=== PATIENT | female | born 1960 | race Caucasian/White ===

== ENCOUNTER → 2016-12-02 | Outpatient (CLI) | payer BC ==
--- NOTE | 2016-12-03 09:06 | XR ---
EXAMINATION TYPE: XR thoracic spine 2V DATE OF EXAM: 12/02/2016 1:28 PM COMPARISON: NONE HISTORY: Pain Alignment is anatomic. There is no compression deformities. There is hypertrophic change and degener ative disc disease primarily involving the mid and lower thoracic spine. Surgical change in the abdom en noted. IMPRESSION: 1. Multilevel mild to moderate degenerative disc disease with most marked changes involving the lower thoracic spine.
== END | disposition home or self-care (01) ==
LOC: RADXRYALE 11:58
PROVIDERS: ATTEND Physician Assistant Medical
DX: M51.34 Other intervertebral disc degeneration, thoracic region (principal)
CPT/HCPCS: 72070

== ENCOUNTER → 2016-12-28 | Outpatient (CLI) | payer BC ==
[~2016-12-28] MED LIST: COSYNTROPIN 0.25 MG VIAL IVP NR; SODIUM CHLORIDE 0.9% 250 ML in EMPTY BAG 1 BAG IV PRN; SODIUM CHLORIDE 0.9% 500 ML in EMPTY BAG 1 BAG IV PRN
[2016-12-28 11:13] VITALS: BP 115/67; PULSE 82; RESP 16; TEMP 97.9
== END | disposition home or self-care (01) ==
LOC: PROCWHC3 10:50
PROVIDERS: ATTEND Nurse Practitioner Family
DX: R53.83 Other fatigue (principal); I95.9 Hypotension, unspecified; E89.6 Postprocedural adrenocortical (-medullary) hypofunction
CPT/HCPCS: 82533; 82024; 96374; J0834

== ENCOUNTER → 2017-07-02 | Outpatient (CLI) | payer BC ==
--- NOTE | 2017-07-05 11:44 | MM ---
Reason for exam: screening (asymptomatic). Last mammogram was performed 1 year and 1 month ago. History: Patient is postmenopausal and has history of other cancer at age 47. Benign stereotactic core biopsy of the left breast, May 26, 2002. Core biopsy of the left breast. Taking estrogen for 8 years beginning at age 42. Taking progesterone for 8 years beginning at age 42. Physical Findings: A clinical breast exam by your physician is recommended on an annual basis and results should be correlated with mammographic findings. MG 3D Screening Mammo W/Cad Bilateral CC and MLO view(s) were taken. Prior study comparison: June 05, 2016, bilateral MG 3d diag mammo w/cad [facility]. December 23, 2015, bilateral MG 3d screening mammo w/cad. The breast tissue is heterogeneously dense. This may lower the sensitivity of mammography. No significant changes when compared with prior studies. ASSESSMENT: Benign, BI-RAD 2 RECOMMENDATION: Routine screening mammogram of both breasts in 1 year.
== END | disposition home or self-care (01) ==
LOC: RADMAMWWP 13:35
PROVIDERS: ATTEND Obstetrics & Gynecology
DX: Z12.31 Encounter for screening mammogram for malignant neoplasm of breast (principal)
CPT/HCPCS: 77063; G0202

== ENCOUNTER → 2018-06-13 | Outpatient (CLI) | payer BC ==
[2018-06-13 11:17] LABS: Basophils % (A) 1 %; Eosinophils # (A) 0.1 k/uL (0-0.7); Eosinophils % (A) 2 %; HCT 37.1 % (34.0-46.0); HGB 11.8 gm/dL (11.4-16.0); Hypochromasia Slight; Lymphocytes # (A) 1.2 k/uL (1.0-4.8); Lymphocytes % (A) 25 %; MCH 31.9 pg (25.0-35.0); MCHC 31.8 g/dL (31.0-37.0); MCV 100.2 fL (80.0-100.0); Mean Platelet Volume 6.5; Monocytes # (A) 0.3 k/uL (0-1.0); Monocytes % (A) 6 %; Neutrophils # (A) 3.2 k/uL (1.3-7.7); Neutrophils % (A) 65 %; Platelet Count 327 k/uL (150-450); RDW 13.1 % (11.5-15.5); WBC 4.8 k/uL (3.8-10.6)
[2018-06-13 11:37] LABS: Potassium 5.2 mmol/L (3.5-5.1)
== END | disposition home or self-care (01) ==
LOC: LABPAT 10:21
PROVIDERS: ATTEND Obstetrics & Gynecology
DX: Z01.812 Encounter for preprocedural laboratory examination (principal); N95.0 Postmenopausal bleeding
CPT/HCPCS: 36415; 80051; 82565; 82947; 84520; 85025; 87086

== ENCOUNTER 2018-06-20 05:35 | Observation (INO) | payer BC ==
[2018-06-20] MEDS ORDERED: fentaNYL (PF) 50 MCG/ML 2 ML AMP IV PRN (05:53)
[2018-06-20] MEDS ORDERED: LIDOCAINE 1% 20 ML VIAL (10MG/ML) FOR IV START INTRADERMA PRN (05:53)
[2018-06-20] MEDS ORDERED: ONDANSETRON 4 MG/2 ML VIAL IVP ONE (05:53)
[2018-06-20] MEDS: LACTATED RINGERS 1,000 ML IV SCH ×3 (06:35→20:31)
[2018-06-20] MEDS ORDERED: DEXAMETHASONE SOD PHOS (MDV) 100 MG/10 ML VIAL IV ONE (06:36)
[2018-06-20 06:44] LABS: Glucose,Whole Blood 169 mg/dL (75-99)
[2018-06-20] MEDS ORDERED: fentaNYL (PF) 50 MCG/ML 2 ML AMP ONE (07:41)
[2018-06-20] MEDS ORDERED: PROPOFOL 10 MG/ML 20 ML VIAL IV ONE (07:41)
[2018-06-20] MEDS ORDERED: PHENYLEPHRINE-0.9% NACL SYG 1 MG/10 ML SYRINGE ONE (07:41)
[2018-06-20] MEDS ORDERED: ePHEDrine SULFATE/0.9% NACL/PF 50 MG/5 ML SYRINGE IV ONE (07:41)
[2018-06-20] MEDS ORDERED: MIDAZOLAM 2 MG/2 ML VIAL ONE (07:41)
[2018-06-20] MEDS: ceFAZolin IN SWFI 2 GM/20 ML SYRINGE IVP ONE ×2 (07:41→07:50)
[2018-06-20] MEDS ORDERED: LIDOCAINE 1% INJ 10MG/ML (20 ML MDV) ONE (07:41)
[2018-06-20] MEDS ORDERED: VASOPRESSIN 20 UNIT/ML 1 ML VIAL IV ONE (08:13)
[2018-06-20] MEDS ORDERED: BACITRACIN 500 UNIT/GM OINT 28.4 GM TUBE TOPICAL ONE (08:13)
[2018-06-20] MEDS ORDERED: LACTATED RINGERS 1,000 ML IV ONE (08:23)
--- NOTE | 2018-06-20 08:51 | P.OP ---
Date of Procedure: 06/20/18 Preoperative Diagnosis: Postmenopausal bleeding Postoperative Diagnosis: Same Procedure(s) Performed: Total vaginal hysterectomy Anesthesia: GETA, spinal Surgeon: Nay Serrano Reiki Practitioner #1: Oskar Singh Estimated Blood Loss (ml): 70 IV fluids (ml): 1,200 Urine output (ml): 200 Pathology: other (Uterus) Condition: stable Disposition: PACU Indications for Procedure: Postmenopausal bleeding with benign endometrial biopsy. Operative Findings: Normal-appearing uterus. Bilateral ovaries not visualized. Second-degree cystocele. Description of Procedure: After the patient was met with her in the preoperative holding area and options for anesthesia were discussed, she was taken to the operating room where spinal anesthetic was administered without incident. She was in positioned, prepped and draped in the dorsal high lithotomy position. Bladder was drained for approximately 150 mL of clear urine. Weighted speculum was placed in the vagina and the cervix was grasped with a single-tooth tenaculum. There was good uterine descensus noted. The vaginal mucosa was circumferentially infused with dilute vasopressin solution. Scalpel was utilized to make a circumferential incision about the cervix. The anterior posterior vaginal mucosa were bluntly dissected away from the underlying cervical tissue. The posterior peritoneum was then placed on countertraction and entered sharply with Metzenbaum scissors. The short weighted speculum was replaced with a long weighted speculum. The vaginal mucosa was further advanced anteriorly. Nakul clamps were utilized to clamp cut and the suture ligated the uterosacral ligaments bilaterally. 2-0 Vicryl suture was utilized less otherwise indicated. Bladder was further advanced under good visualization anteriorly. The broad ligaments were clamped cut and suture ligated bilaterally. The uterine vasculature was clamped cut and suture ligated bilaterally. The bladder was further advanced. The the posterior fundus of the uterus was then delivered from the vagina and a window was made in the anterior peritoneum. The cornual pedicles were both clamped and the specimen was removed. Both uterine pedicles were doubly suture ligated and inspected for hemostasis. Ovaries were neither visualized nor the able to be palpated on vaginally. The long weighted speculum was removed and the short weighted speculum was replaced. The peritoneum was closed in a pursestring fashion. The vaginal cuff was noted to be quite vascular and Bovie electrocautery was utilized in some areas for hemostasis. The uterosacral ligaments were then reapproximated in the midline incorporating the lateral vaginal mucosa to suspend the vagina. The rest of the vaginal cuff was then closed in an interrupted fashion with 0 Vicryl suture. Hemostasis was noted. The cuff was observed. The vagina was then packed with bacitracin-soaked Kerlix. Cheema catheter was placed in the vagina and an additional 50 mL of clear urine was obtained. All counts were reported to me as correct by the operating room staff and the patient was awoken from anesthetic without incident. She is transported recovery area in stable condition.
[2018-06-20] MEDS ORDERED: MORPHINE SULFATE 4 MG/ML SYRINGE IVP PRN (09:11)
[2018-06-20] MEDS ORDERED: NALOXONE 0.4 MG/ML 1 ML VIAL IV PRN (09:11)
[2018-06-20] MEDS ORDERED: ONDANSETRON 4 MG/2 ML VIAL IVP PRN ×2 (09:11→10:03)
[2018-06-20] MEDS ORDERED: Acetaminophen-Codeine 300-30mg TAB PO PRN ×2 (10:03)
[2018-06-20] MEDS ORDERED: SIMETHICONE 80 MG CHEWABLE PO PRN (10:03)
[2018-06-20] MEDS ORDERED: diphenhydrAMINE 50 MG/ML 1 ML VIAL IVP PRN (10:03)
[2018-06-20] MEDS ORDERED: KETOROLAC 30 MG/ML 1 ML VIAL IVP PRN (10:03)
[2018-06-20] MEDS ORDERED: METOCLOPRAMIDE 5 MG/ML 2 ML VIAL IVP PRN (10:03)
[2018-06-20] MEDS ORDERED: SENNOSIDES-DOCUSATE SODIUM 1 EACH TAB PO PRN (10:03)
[2018-06-20] MEDS ORDERED: ZOLPIDEM 5 MG TAB PO PRN (10:03)
[2018-06-20] MEDS ORDERED: IBUPROFEN 600 MG TAB PO PRN (10:03)
[2018-06-20 12:10] LABS: Glucose,Whole Blood 266 mg/dL (75-99)
[2018-06-20 16:56] VITALS: BMI 29.9
[2018-06-20 17:59] LABS: Glucose,Whole Blood 216 mg/dL (75-99)
[2018-06-20] MEDS ORDERED: ATORVASTATIN 80 MG TAB PO SCH (21:00)
[2018-06-21] MEDS: LACTATED RINGERS 1,000 ML IV SCH ×3 (03:31→06:05)
[2018-06-21] MEDS ORDERED: PANTOPRAZOLE 40 MG TABLET PO SCH (07:30)
[2018-06-21] MEDS ORDERED: glipiZIDE 10 MG TAB PO SCH (07:30)
[2018-06-21 08:17] VITALS: BP 133/71; PULSE 74; RESP 18; TEMP 98.2
[2018-06-21 08:19] LABS: Basophils % (A) 0 %; Eosinophils # (A) 0.1 k/uL (0-0.7); Eosinophils % (A) 1 %; HCT 32.2 % (34.0-46.0); HGB 10.2 gm/dL (11.4-16.0); Hypochromasia Slight; Lymphocytes # (A) 1.7 k/uL (1.0-4.8); Lymphocytes % (A) 19 %; MCH 31.7 pg (25.0-35.0); MCHC 31.8 g/dL (31.0-37.0); MCV 99.6 fL (80.0-100.0); Mean Platelet Volume 6.7; Monocytes # (A) 0.5 k/uL (0-1.0); Monocytes % (A) 6 %; Neutrophils # (A) 6.4 k/uL (1.3-7.7); Neutrophils % (A) 74 %; Platelet Count 294 k/uL (150-450); RBC 3.23 m/uL (3.80-5.40); WBC 8.7 k/uL (3.8-10.6)
--- NOTE | 2018-06-21 08:34 | P.DS ---
Providers Date of admission: 06/20/18 21:06 Expected date of discharge: 06/21/18 Attending physician: Nay Serrano Primary care physician: Stated None - Discharge Diagnosis(es) (1) Post-menopausal bleeding Current Visit: Yes Status: Acute Hospital Course: This is a 58 year old woman who was experiencing benign postmenopausal vaginal bleeding well on hormone replacement therapy. Endometrium sampling was benign however conservative measures to decrease her bleeding were unsatisfactory. She therefore elected for definitive surgical management. She was admitted on 06/20/2018 and went to the operating room where she underwent an uncomplicated total vaginal hysterectomy. This was done under spinal and general anesthetic. Please see the operative report for details. By the evening of postoperative day 0 her pain was well controlled however she did have some nausea and vomiting with general diet. This did resolve by the morning of postoperative day #1 and she was able to eat a regular breakfast without difficulty. Her blood sugars were monitored and her home on glipizide was restarted. Her postop day 1 hemoglobin was 10.2. She was able to void spontaneously with a Cheema catheter and vaginal packing removed. She had very scant vaginal bleeding. On exam her abdomen was soft and nontender and she had no active vaginal bleeding. Her vital signs were stable. She was therefore discharged home on postoperative day #1 with routine instructions for care and follow-up. Procedures: Total vaginal hysterectomy Patient Condition at Discharge: Good Plan - Discharge Summary Discharge Rx Participant: Yes New Discharge Prescriptions: New Ibuprofen [Motrin] 600 mg PO Q6HR PRN #30 tab PRN Reason: Mild Discomfort Sennosides-Docusate Sodium [Senokot-S] 2 each PO BID PRN tab PRN Reason: Constipation No Action glyBURIDE [Diabeta] 5 mg PO AC-BRKFST Temazepam [Restoril] 30 mg PO HS PRN PRN Reason: Insomnia Atorvastatin [Lipitor] 80 mg PO HS Omeprazole 20 mg PO DAILY Progesterone, Micronized [Progesterone] 200 mg PO HS Aspirin 325 mg PO DAILY Enalapril [Vasotec] 2.5 mg PO DAILY Melatonin 30 mg PO HS Ergocalciferol (Vitamin D2) [Drisdol] 50,000 unit PO Q30D Discharge Medication List Atorvastatin [Lipitor] 80 mg PO HS 12/28/16 [History] Omeprazole 20 mg PO DAILY 04/03/17 [History] Progesterone, Micronized [Progesterone] 200 mg PO HS 12/28/16 [History] Temazepam [Restoril] 30 mg PO HS PRN 12/28/16 [History] glyBURIDE [Diabeta] 5 mg PO AC-BRKFST 12/28/16 [History] Aspirin 325 mg PO DAILY 06/10/18 [History] Enalapril [Vasotec] 2.5 mg PO DAILY 06/10/18 [History] Ergocalciferol (Vitamin D2) [Drisdol] 50,000 unit PO Q30D 06/10/18 [History] Melatonin 30 mg PO HS 06/10/18 [History] Ibuprofen [Motrin] 600 mg PO Q6HR PRN #30 tab 06/21/18 [Rx] Sennosides-Docusate Sodium [Senokot-S] 2 each PO BID PRN tab 06/21/18 [Rx] Follow up Appointment(s)/Referral(s): Nay Serrano MD [STAFF PHYSICIAN] - 2 Weeks Activity/Diet/Wound Care/Special Instructions: Follow-up in the office in 2 weeks postoperatively or sooner with any concerning signs or symptoms including heavy vaginal bleeding, foul vaginal discharge, severe abdominal or pelvic pain, fever greater than 100.5, redness or swelling of the lower extremities. May use ibuprofen 600 mg every 6 hours and Tylenol extra strength every 6-8 hours as needed for pain. No intercourse, nothing in the vagina for 6 weeks postoperatively. No heavy lifting or vigorous exercise until seen postoperatively. No driving for 1-2 weeks. Discharge Disposition: HOME SELF-CARE
== END 2018-06-21 10:01 | disposition home or self-care (01) ==
LOC: OR 05:35 → 4FBP 08:55 → OR 21:17
PROVIDERS: ADMIT Obstetrics & Gynecology; ATTEND Obstetrics & Gynecology
DX: N95.0 Postmenopausal bleeding (principal); N81.10 Cystocele, unspecified; N84.0 Polyp of corpus uteri; D25.9 Leiomyoma of uterus, unspecified; R11.2 Nausea with vomiting, unspecified; I10 Essential (primary) hypertension; G47.33 Obstructive sleep apnea (adult) (pediatric); E21.3 Hyperparathyroidism, unspecified; E78.1 Pure hyperglyceridemia; K21.9 Gastro-esophageal reflux disease without esophagitis; E11.9 Type 2 diabetes mellitus without complications; Z79.82 Long term (current) use of aspirin; Z79.84 Long term (current) use of oral hypoglycemic drugs; Z79.899 Other long term (current) drug therapy; Z99.89 Dependence on other enabling machines and devices; Z90.49 Acquired absence of other specified parts of digestive tract; Z95.5 Presence of coronary angioplasty implant and graft; Z85.528 Personal history of other malignant neoplasm of kidney; Z90.5 Acquired absence of kidney; Z88.0 Allergy status to penicillin; Z88.5 Allergy status to narcotic agent; Z83.3 Family history of diabetes mellitus; Z83.79 Family history of other diseases of the digestive system; Z82.61 Family history of arthritis; Z82.5 Family history of asthma and other chronic lower respiratory diseases; Z84.1 Family history of disorders of kidney and ureter
CPT/HCPCS: 86900; 86901; 84132; 85025; 86850; 88307; 58260; G0378 ×2; J2250; J1200; J2405; J2001; J3010; J1100; J2370; J2704; J0690

== ENCOUNTER → 2018-07-08 | Outpatient (CLI) | payer BC ==
--- NOTE | 2018-07-12 09:45 | MM ---
Reason for exam: screening (asymptomatic). Last mammogram was performed 1 year ago. History: Patient is postmenopausal and has history of other cancer at age 47. Benign stereotactic core biopsy of the left breast, May 26, 2002. Core biopsy of the left breast. Taking estrogen for 16 years beginning at age 42. Taking progesterone for 16 years beginning at age 42. Physical Findings: A clinical breast exam by your physician is recommended on an annual basis and results should be correlated with mammographic findings. MG 3D Screening Mammo W/Cad Bilateral CC and MLO view(s) were taken. Prior study comparison: July 02, 2017, bilateral MG 3d screening mammo w/cad. June 05, 2016, bilateral MG 3d diag mammo w/cad [facility]. The breast tissue is heterogeneously dense. This may lower the sensitivity of mammography. Previous mammotome biopsy in the left breast. No significant changes when compared with prior studies. ASSESSMENT: Negative, BI-RAD 1 RECOMMENDATION: Routine screening mammogram of both breasts in 1 year.
== END | disposition home or self-care (01) ==
LOC: RADMAMWWP 10:48
PROVIDERS: ATTEND Obstetrics & Gynecology
DX: Z12.31 Encounter for screening mammogram for malignant neoplasm of breast (principal)
CPT/HCPCS: 77063; 77067

== ENCOUNTER → 2018-09-09 | Outpatient (CLI) | payer BC ==
--- NOTE | 2018-09-09 15:57 | US ---
EXAMINATION TYPE: US pelvic complete DATE OF EXAM: 09/09/2018 COMPARISON: 10/18/2015 CLINICAL HISTORY: E11.65,Type 2 diabetes mellitus N183,[id number],[id number]. LLQ pain, hysterectomy May 2018 TECHNIQUE: . Transabdominal sonographic images of the pelvis were acquired. Date of LMP: Hysterectomy in May 2018 EXAM MEASUREMENTS: Uterus: Surgically absent Endometrial Stripe: Surgically absent Right Ovary: 1.2 x 0.8 x 1.0 cm Left Ovary: 2.2 x 1.0 x 1.5 cm 1. Uterus: Surgically absent 2. Endometrium: Surgically absent 3. Right Ovary: wnl 4. Left Ovary: wnl 5. Bilateral Adnexa: wnl 6. Posterior cul-de-sac: wnl Urinary bladder is unremarkable. Posterior wall is normal. IMPRESSION: 1. Normal postsurgical pelvic ultrasound.
--- NOTE | 2018-09-12 09:31 | US ---
EXAMINATION TYPE: US abdomen complete DATE OF EXAM: 09/09/2018 COMPARISON: CT 10/18/2015 CLINICAL HISTORY: E11.65,Type 2 diabetes mellitus N183,[id number]. Right kidney removed due to CA, gallbladder surgically absent, LLQ pain EXAM MEASUREMENTS: Liver Length: 14.5 cm Gallbladder Wall: Surgically absent CBD: 0.5 cm Spleen: 10.0 cm Right Kidney: Surgically absent Left Kidney: 12.2 x 6.0 x 5.6 cm Pancreas: Tail obscured by overlying bowel gas, visualized portions obscured by bowel gas Liver: wnl Gallbladder: Surgically absent Evidence for sonographic Reyes's sign: No CBD: wnl distal portion obscured by bowel gas Spleen: wnl Right Kidney: Surgically absent Left Kidney: No hydronephrosis or masses seen Upper IVC: wnl Abd Aorta: wnl IMPRESSION: 1. Abdomen ultrasound as visualized is normal. 2. Patient status post right nephrectomy.
== END | disposition home or self-care (01) ==
LOC: RADUSWWP 07:35
PROVIDERS: ATTEND Family Medicine
DX: R10.814 Left lower quadrant abdominal tenderness (principal); E11.65 Type 2 diabetes mellitus with hyperglycemia; E11.22 Type 2 diabetes mellitus with diabetic chronic kidney disease; N18.3 Chronic kidney disease, stage 3 (moderate); Z90.5 Acquired absence of kidney
CPT/HCPCS: 76700; 76856

== ENCOUNTER → 2019-01-24 | Outpatient (CLI) | payer BC ==
--- NOTE | 2019-01-24 16:35 | CT ---
EXAMINATION TYPE: CT sinus wo con DATE OF EXAM: 01/24/2019 COMPARISON: HISTORY: Pain CT DLP: 547 mGycm. Automated Exposure Control for Dose Reduction was Utilized. TECHNIQUE: CT scan of the sinuses is performed without contrast, axial images are obtained, coronal r eformatted images are also reviewed. FINDINGS: The paranasal sinuses including the frontal, ethmoid, sphenoid, and maxillary sinuses bila terally are well-aerated without abnormal opacification. The ostiomeatal complex is patent bilateral ly on the coronal images. Visualized portion of mastoid air cells show no abnormal opacification. The globes are intact bilate rally. Nasal septal deviation incidentally noted. There is a large surjit bullosa on the right and sm all surjit bullosa on the left. Hyperostosis of the calvarium noted. IMPRESSION: The sinuses are clear and the ostiomeatal complex is patent bilaterally.
== END | disposition home or self-care (01) ==
LOC: RADCTMAIN 13:30
PROVIDERS: ATTEND Family Medicine
DX: J01.41 Acute recurrent pansinusitis (principal)
CPT/HCPCS: 70486

== ENCOUNTER → 2019-08-29 | Outpatient (CLI) | payer BC ==
--- NOTE | 2019-08-30 09:46 | MM ---
Reason for exam: screening (asymptomatic). Last mammogram was performed 1 year and 2 months ago. History: Patient is postmenopausal and has history of other cancer at age 47. Benign stereotactic core biopsy of the left breast, May 26, 2002. Core biopsy of the left breast. Taking estrogen for 16 years beginning at age 42. Taking progesterone for 16 years beginning at age 42. Physical Findings: A clinical breast exam by your physician is recommended on an annual basis and results should be correlated with mammographic findings. MG 3D Screening Mammo W/Cad Bilateral CC and MLO view(s) were taken. Prior study comparison: July 08, 2018, bilateral MG 3d screening mammo w/cad. July 02, 2017, bilateral MG 3d screening mammo w/cad. The breast tissue is heterogeneously dense. This may lower the sensitivity of mammography. Benign appearing bilateral calcifications. Left biopsy marker noted. ASSESSMENT: Benign, BI-RAD 2 RECOMMENDATION: Routine screening mammogram of both breasts in 1 year.
== END | disposition home or self-care (01) ==
LOC: RADMAMWWP 12:23
PROVIDERS: ATTEND Family Medicine
DX: Z12.31 Encounter for screening mammogram for malignant neoplasm of breast (principal)
CPT/HCPCS: 77063; 77067

== ENCOUNTER → 2020-12-02 | Outpatient (CLI) | payer BC ==
--- NOTE | 2020-12-03 11:24 | MM ---
Reason for exam: screening (asymptomatic). Last mammogram was performed 1 year and 3 months ago. History: Patient is postmenopausal and has history of other cancer at age 47. Benign stereotactic core biopsy of the left breast, May 26, 2002. Core biopsy of the left breast. Taking estrogen for 16 years beginning at age 42. Taking progesterone for 16 years beginning at age 42. Physical Findings: A clinical breast exam by your physician is recommended on an annual basis and results should be correlated with mammographic findings. MG 3D Screening Mammo W/Cad Bilateral CC and MLO view(s) were taken. Prior study comparison: August 29, 2019, bilateral MG 3d screening mammo w/cad. July 08, 2018, bilateral MG 3d screening mammo w/cad. The breast tissue is heterogeneously dense. This may lower the sensitivity of mammography. There are benign appearing round calcifications bilaterally. Previous mammotome biopsy in the left breast. There is no discrete abnormality. ASSESSMENT: Benign, BI-RAD 2 RECOMMENDATION: Routine screening mammogram of both breasts in 1 year.
== END | disposition home or self-care (01) ==
LOC: RADMAMWWP 09:39
PROVIDERS: ATTEND Obstetrics & Gynecology
DX: Z12.31 Encounter for screening mammogram for malignant neoplasm of breast (principal)
CPT/HCPCS: 77063; 77067

== ENCOUNTER → 2022-01-13 | Outpatient (CLI) | payer BC ==
--- NOTE | 2022-01-14 11:32 | MM ---
Reason for exam: screening (asymptomatic). Last mammogram was performed 1 year and 1 month ago. History: Patient is postmenopausal and has history of other cancer at age 47. Benign stereotactic core biopsy of the left breast, May 26, 2002. Core biopsy of the left breast. Taking estrogen for 16 years beginning at age 42. Taking progesterone for 16 years beginning at age 42. Physical Findings: A clinical breast exam by your physician is recommended on an annual basis and results should be correlated with mammographic findings. MG 3D Screening Mammo W/Cad Bilateral CC and MLO view(s) were taken. Prior study comparison: December 02, 2020, bilateral MG 3d screening mammo w/cad. August 29, 2019, bilateral MG 3d screening mammo w/cad. The breast tissue is heterogeneously dense. This may lower the sensitivity of mammography. Stable benign calcifications. There is no discrete abnormality. No significant changes when compared with prior studies. ASSESSMENT: Benign, BI-RAD 2 RECOMMENDATION: Routine screening mammogram of both breasts in 1 year.
== END | disposition home or self-care (01) ==
LOC: RADMAMWWP 13:49
PROVIDERS: ATTEND Obstetrics & Gynecology
DX: Z12.31 Encounter for screening mammogram for malignant neoplasm of breast (principal); Z78.0 Asymptomatic menopausal state
CPT/HCPCS: 77063; 77067

== ENCOUNTER → 2023-01-14 | Outpatient (CLI) | payer BC ==
--- NOTE | 2023-01-15 10:57 | MM ---
Reason for Exam: Screening (asymptomatic). Last screening mammogram was performed 12 month(s) ago. Patient History: Menarche at age 11. First Full-Term at age 22. Hysterectomy at age 58. Postmenopausal. Other cancer, age 47. Currently using Estrogen, beginning at age 42 for 16 years. Currently using Progesterone, beginning at age 42 for 16 years. Core Biopsy on the Left side. 05/26/2002, Benign Stereotactic Core Biopsy on the left side. Risk Values: Poppy 5 year model risk: 2.1%. NCI Lifetime model risk: 8.9%. Prior Study Comparison: 08/29/2019 Bilateral Screening Mammogram, [facility]. 12/02/2020 Bilateral Screening Mammogram, [facility]. 01/13/2022 Bilateral Screening Mammogram, [facility]. Tissue Density: The breast tissue is heterogeneously dense. This may lower the sensitivity of mammography. Findings: Analyzed By CAD. Mammotome biopsy clip in the left breast is redemonstrated. There is occasional tiny benign-appearing round calcification redemonstrated scattered throughout the bilateral breasts. There is no suspicious new group of microcalcifications or new suspicious mass in either breast. Overall Assessment: Benign, BI-RAD 2 Management: Screening Mammogram of both breasts in 1 year. A clinical breast exam by your physician is recommended on an annual basis and results should be correlated with mammographic findings. Electronically signed and approved by: David Castellanos M.D.
== END | disposition home or self-care (01) ==
LOC: RADMAMWWP 10:58
PROVIDERS: ATTEND Obstetrics & Gynecology
DX: Z12.31 Encounter for screening mammogram for malignant neoplasm of breast (principal); Z78.0 Asymptomatic menopausal state
CPT/HCPCS: 77063; 77067

== ENCOUNTER → 2024-01-17 | Outpatient (CLI) | payer MEDICARE ==
--- NOTE | 2024-01-18 19:40 | MM ---
Reason for Exam: Screening (asymptomatic). Last screening mammogram was performed 12 month(s) ago. Patient History: Menarche at age 11. First Full-Term at age 22. Hysterectomy at age 58. Postmenopausal. Other cancer, age 47. Currently using Estrogen, beginning at age 42 for 16 years. Currently using Progesterone, beginning at age 42 for 16 years. Core Biopsy on the Left side. 05/26/2002, Benign Stereotactic Core Biopsy on the left side. Risk Values: Poppy 5 year model risk: 2.2%. NCI Lifetime model risk: 8.6%. Prior Study Comparison: 12/02/2020 Bilateral Screening Mammogram, [facility]. 01/13/2022 Bilateral Screening Mammogram, [facility]. 01/14/2023 Bilateral MG 3D screening mammo w/cad, [facility]. Tissue Density: There are scattered areas of fibroglandular density. Findings: Analyzed By CAD. Microclip left breast from prior biopsy. Unchanged bilateral areas of asymmetric density. There is no suspicious group of microcalcifications or new suspicious mass in either breast. Overall Assessment: Benign, BI-RAD 2 Management: Screening Mammogram of both breasts in 1 year. . Patient should continue monthly self-breast exams. A clinical breast exam by your physician is recommended on an annual basis. This exam should not preclude additional follow-up of suspicious palpable abnormalities. Note on Poppy scores and lifetime risk: 1. A Poppy score greater than 3% is considered moderate risk. If this is the case, consider specialist referral to assess eligibility for a risk reducing agent. 2. If overall lifetime risk for the development of breast cancer is 20% or higher, the patient may qualify for future screening with alternating mammogram and breast MRI. Electronically signed and approved by: Ashley Mora M.D. Radiologist
== END | disposition home or self-care (01) ==
LOC: RADMAMWWP 12:34
PROVIDERS: ATTEND Obstetrics & Gynecology
DX: Z12.31 Encounter for screening mammogram for malignant neoplasm of breast (principal); Z78.0 Asymptomatic menopausal state
CPT/HCPCS: 77063; 77067

== ENCOUNTER → 2024-09-13 | Outpatient (CLI) | payer MEDICARE ==
--- NOTE | 2024-09-13 12:13 | XR ---
EXAMINATION TYPE: XR chest 2V DATE OF EXAM: 09/13/2024 11:32 AM COMPARISON: Chest radiographs from 09/13/2024 CLINICAL INDICATION: Female, 64 years old with history of R051 ACUTE COUGH; TECHNIQUE: XR chest 2V Frontal and lateral views of the chest. FINDINGS: Lungs/Pleura: There is no evidence of pleural effusion, focal consolidation, or pneumothorax. Pulmonary vascularity: Unremarkable. Heart/mediastinum: Cardiomediastinal silhouette is unremarkable. Musculoskeletal: No acute osseous pathology. IMPRESSION: No acute cardiopulmonary disease/process. [facility], , 09/13/2024 12:10 PM
== END | disposition home or self-care (01) ==
LOC: RADXRYALE 11:20
PROVIDERS: ATTEND Physician Assistant Medical
DX: R05.1 Acute cough (principal)
CPT/HCPCS: 71046

== ENCOUNTER → 2025-02-13 | Outpatient (CLI) | payer MEDICARE ==
--- NOTE | 2025-02-13 13:07 | MM ---
Reason for Exam: Screening (asymptomatic). Last mammogram was performed 1 year(s) and 1 month(s) ago. Patient History: Menarche at age 11. First Full-Term at age 22. Hysterectomy at age 58. Postmenopausal. Other cancer, age 47. Currently using Estrogen, beginning at age 42 for 16 years. Currently using Progesterone, beginning at age 42 for 16 years. Core Biopsy on the Left side. 05/26/2002, Benign Stereotactic Core Biopsy on the left side. Risk Values: Poppy 5 year model risk: 2.3%. NCI Lifetime model risk: 8.0%. Prior Study Comparison: 01/13/2022 Bilateral Screening Mammogram, [facility]. 01/14/2023 Bilateral MG 3D screening mammo w/cad, [facility]. 01/17/2024 Bilateral MG 3D screening mammo w/cad, [facility]. Tissue Density: There are scattered areas of fibroglandular density. Findings: Analyzed By CAD. Left breast biopsy clip. Right breast: There is no suspicious group of microcalcifications or new suspicious mass. Benign-appearing calcifications right breast. Left breast: There is no suspicious group of microcalcifications or new suspicious mass. Benign-appearing calcifications left breast. Overall Assessment: Benign, BI-RAD 2 Management: Screening Mammogram of both breasts in [address] [facility] will attempt to contact patient to return for supplemental views and ultrasound if indicated. Patient should continue monthly self-breast exams. A clinical breast exam by your physician is recommended on an annual basis. This exam should not preclude additional follow-up of suspicious palpable abnormalities. Note on Poppy scores and lifetime risk: 1. A Poppy score greater than 3% is considered moderate risk. If this is the case, consider specialist referral to assess eligibility for a risk reducing agent. 2. If overall lifetime risk for the development of breast cancer is 20% or higher, the patient may qualify for future screening with alternating mammogram and breast MRI. [facility], , 02/13/2025 1:01 PM. Electronically signed and approved by: Garry Ferreira DO
== END | disposition home or self-care (01) ==
LOC: RADMAMWWP 12:33
PROVIDERS: ATTEND Obstetrics & Gynecology
DX: Z12.31 Encounter for screening mammogram for malignant neoplasm of breast (principal); R92.323 Mammographic fibroglandular density, bilateral breasts; Z78.0 Asymptomatic menopausal state; R92.1 Mammographic calcification found on diagnostic imaging of breast
CPT/HCPCS: 77063; 77067